=== PATIENT | female | born 1945 | race Caucasian/White ===

== ENCOUNTER → 2019-11-10 10:08 | Outpatient (BNVA) | payer MEDICARE, SELFPAY | PROVIDERS: PCP Internal Medicine; Referring Provider Internal Medicine; Visit Provider Internal Medicine Pulmonary Disease | DX: C34.91 Malignant neoplasm of unspecified part of right bronchus or lung (principal); J44.9 Chronic obstructive pulmonary disease, unspecified; R05 Cough; R60.0 Localized edema | CPT/HCPCS: 99214 ==